=== PATIENT | female | born 1955 | race Caucasian/White ===

== ENCOUNTER 2021-11-24 06:35 | Day surgery (SDC) | payer OTHER ==
[2021-11-23 11:05] VITALS: BMI 43.6
[~2021-11-24 06:35] MED LIST: HYDROmorphone 0.5 MG/0.5 ML SYRINGE IVP PRN; LACTATED RINGERS 1,000 ML IV SCH; LIDOCAINE 1% (10MG/ML) FOR IV START INTRADERMA PRN; MIDAZOLAM 2 MG/2 ML VIAL IV PRN; Pre Op ABX Message 1 EACH MISC MISCELLANE ONE
[2021-11-24] MEDS ORDERED: LACTATED RINGERS 1,000 ML IV ONE (06:57)
[2021-11-24] MEDS ORDERED: ONDANSETRON 4 MG/2 ML VIAL ONE (06:59)
[2021-11-24] MEDS ORDERED: DEXAMETHASONE SOD PHOSPHATE 4 MG/ML 1 ML VIAL IVP ONE (07:03)
[2021-11-24] MEDS ORDERED: PROPOFOL 10 MG/ML 50 ML VIAL IV ONE (08:25)
[2021-11-24] MEDS ORDERED: MIDAZOLAM 2 MG/2 ML VIAL ONE (08:25)
[2021-11-24] MEDS ORDERED: LIDOCAINE 2% INJ 20 MG/ML (2 ML VIAL) ONE (08:25)
[2021-11-24] MEDS ORDERED: fentaNYL (PF) 50 MCG/ML 2 ML AMP ONE (08:25)
[2021-11-24] MEDS ORDERED: SODIUM CHLORIDE 0.9% 100 ML with ceFAZolin 2,000 MG IV ONE ×2 (08:35)
[2021-11-24] MEDS ORDERED: BUPIVACAINE (PF) 0.25% 30 ML VIAL SQ ONE (08:35)
--- NOTE | 2021-11-24 09:39 | P.OP ---
Date of Procedure: 11/24/21 Preoperative Diagnosis: Hallux valgus left foot Postoperative Diagnosis: Same Procedure(s) Performed: First metatarsal phalangeal joint arthrodesis left foot Implants: Arthrex MaxForce plate Anesthesia: MERARI Surgeon: Dustin Mora Estimated Blood Loss (ml): 2 Pathology: none sent Condition: stable Disposition: PACU Description of Procedure: The patient was brought into the operative room placed on table supine position. Timeout was taken to confirm correct patient identifiers, correct procedure, and correct laterality of procedure. When the staff in the room were in agreement with the timeout, the patient was induced and placed under general ane sthesia. A well-padded tourniquet was placed on the ankle and then 20 mL of 0.25% Marcaine was injected as an ankle block. The foot was then prepped and draped in usual manner. The foot was exsanguinated with an Esmarch bandage and the tourniquet inflated to 250 mmHg. Attention directed over the first metatarsal phalangeal joint where a linear incision was made between the extensor hallucis longus tendon and the neurovascular structures. The incision was deepened down to the subcutaneous tissue careful to identify, avoid, and retract any neurovascular structures and cauterize any bleeding vessels. Blunt dissection was continued down to the joint capsule. A linear periosteal and capsular incision was made to the extensor hallucis longus tendon. Subperiosteal dissection was performed to expose the base of the proximal phalanx and head of the first metatarsal. A reamer saw was then used to contour the first metatarsal head and remove any of the osteophytes. Then a guidewire was placed centrally into the first metatarsal head and into the medullary canal parallel to the long access of the metatarsal. The concave reamer was then used to remove the articular cartilage and subchondral bone and expose bleeding medullary bone. The guidewire was removed and then used to aggressively fenestrate the head of the first metatarsal to promote bleeding. The guidewire was then inserted at the central aspect of the articular surface of the base of the proximal phalanx. It was advanced into the medullary canal parallel to the long axis of the phalanx. The convex reamer was then used to remove the articular cartilage and subchondral bone and expose bleeding medullary bone. The guidewire was removed and used to aggressively fenestrate this surface also. The wound is then thoroughly irrigated with antibiotic saline. Approximately 1 mL of Arthrex bone morphogenic protein material was placed between the arthrodesis segments. Then the MaxForce plate was placed dorsally across the arthrodesis site utilizing aligned in the plate to placed over the joint surface. It was temporarily fixated in position was checked under fluoroscopy. Once position was acceptable locking screws were placed in the distal holes in the proximal phalanx. A guidewire was then placed across the arthrodesis site to hold the joint in its position. Then the drill hole for the compression device of the plate was made the compression device inserted and then utilized to further compress the arthrodesis site. Once that was completed threaded olive wire was used to lock the plate in place and then the second compression screw was placed proximally to lock the plate and further compress the joint. A second nonlocking screw was placed in the proximal portion of the plate into the metatarsal and the last screw placed with locking screw in the most proximal portion of the plate on the metatarsal. Final fluoroscopic imaging showed complete compression across the arthrodesis site and proper alignment of the great toe. The wound is again irrigated with antibiotic saline. Deep closure was done with 2-0 Vicryl. Subcu closure done for Monocryl. And skin closure done with 3-0 Stratafix in a running subcuticular manner. Dermal glue was applied and allowed to dry. Steri-Strips are placed over the incision, then a jumpstart dressing, and then a bulky dry dressing. The tourniquet was released and capillary refill return to all digits on the foot. Patient was then placed in a well-padded, well molded plaster posterior mold/sugar tong splint. The ankle and foot were held in neut ral position until the splint was dried. Anesthesia was then reversed and the patient was taken recovery with vital signs stable
[2021-11-24 09:46] VITALS: TEMP 98.1
[2021-11-24 10:38] VITALS: RESP 20
[2021-11-24 10:52] VITALS: BP 125/84; PULSE 61
== END 2021-11-24 11:38 | disposition home or self-care (01) ==
LOC: OR 06:35
PROVIDERS: ATTEND Podiatrist
DX: M20.12 Hallux valgus (acquired), left foot (principal); M21.6X2 Other acquired deformities of left foot; M10.9 Gout, unspecified; E89.0 Postprocedural hypothyroidism; E66.01 Morbid (severe) obesity due to excess calories; Z68.41 Body mass index [BMI] 40.0-44.9, adult; Z79.890 Hormone replacement therapy; Z97.3 Presence of spectacles and contact lenses; Z83.3 Family history of diabetes mellitus; Z82.49 Family history of ischemic heart disease and other diseases of the circulatory system
CPT/HCPCS: 28299; C1713; J2250; J1100; J2405; J0690; J3010; J2704; J1170; J2001

== ENCOUNTER 2022-04-20 07:36 | Day surgery (SDC) | payer OTHER ==
[2022-04-17 08:41] VITALS: BMI 43.2
[~2022-04-20 07:36] MED LIST changes: +DEXAMETHASONE SOD PHOSPHATE 4 MG/ML 1 ML VIAL IV ONE; -LIDOCAINE 1% (10MG/ML) FOR IV START INTRADERMA PRN; +ONDANSETRON 4 MG/2 ML VIAL IVP ONE; -Pre Op ABX Message 1 EACH MISC MISCELLANE ONE; +SCOPOLAMINE 1 MG/72 HR PATCH TRANSDERM ONE
[2022-04-20] MEDS ORDERED: MIDAZOLAM 2 MG/2 ML VIAL IVP ONE (08:40)
[2022-04-20] MEDS ORDERED: PROPOFOL 10 MG/ML 20 ML VIAL IV ONE (09:29)
[2022-04-20] MEDS ORDERED: SUCCINYLCHOLINE CHLORIDE 200 MG/10 ML VIAL IV ONE (09:29)
[2022-04-20] MEDS ORDERED: fentaNYL (PF) 50 MCG/ML 2 ML AMP ONE (09:29)
[2022-04-20] MEDS ORDERED: ROPIVACAINE 5 MG/ML 30 ML VIAL ONE (09:29)
[2022-04-20] MEDS ORDERED: DEXAMETHASONE SOD PHOSPHATE 4 MG/ML 1 ML VIAL ONE (09:29)
[2022-04-20] MEDS ORDERED: LIDOCAINE 2% INJ 20 MG/ML (2 ML VIAL) ONE (09:29)
[2022-04-20] MEDS ORDERED: ceFAZolin 1,000 MG in SODIUM CHLORIDE 0.9% 1,000 ML IRRIGATION ONE (09:40)
--- NOTE | 2022-04-20 10:53 | P.OP ---
Date of Procedure: 04/20/22 Preoperative Diagnosis: Hallux valgus right foot Postoperative Diagnosis: Same Procedure(s) Performed: First metatarsal phalangeal joint arthrodesis right foot Implants: Arthrex MaxForce plate Allosync Anesthesia: ANASTASIAA Surgeon: Dustin Mora Estimated Blood Loss (ml): 1 Pathology: none sent Condition: stable Disposition: PACU Description of Procedure: Prior to the patient being brought to the operative room. Anesthesia administered nerve block on the right lower extremity. The patient was brought into the operative room placed on table supine position. Timeout was taken to confirm correct patient identifiers, correct procedure, and correct laterality of procedure. When the staff in the room were in agreement with the timeout, the patient was induced and placed under general anesthesia. A well-padded tourniquet was placed on the ankle. The foot was then prepped and draped in usual manner. The foot was exsanguinated with an Esmarch bandage and the tourniquet inflated to 250 mmHg. Attention directed over the first metatarsal phalangeal joint where a linear incision was made between the extensor hallucis longus tendon and the neurovascular structures. The incision was deepened down to the subcutaneous tissue careful to identify, avoid, and retract any neurovascular structures and cauterize any bleeding vessels. Blunt dissection was continued down to the joint capsule. A linear periosteal and capsular incision was made to the e xtensor hallucis longus tendon. Subperiosteal dissection was performed to expose the base of the proximal phalanx and head of the first metatarsal. A reamer saw was then used to contour the first metatarsal head and remove any of the osteophytes. Then a guidewire was placed centrally into the first metatarsal head and into the medullary canal parallel to the long access of the metatarsal. The concave reamer was then used to remove the articular cartilage and subchondral bone and expose bleeding medullary bone. The guidewire was removed and then used to aggressively fenestrate the head of the first metatarsal to promote bleeding. The guidewire was then inserted at the central aspect of the articular surface of the base of the proximal phalanx. It was advanced into the medullary canal parallel to the long axis of the phalanx. The convex reamer was then used to remove the articular cartilage and subchondral bone and expose bleeding medullary bone. The guidewire was removed and used to aggressively fenestrate this surface also. The wound is then thoroughly irrigated with antibiotic saline. Approximately 1 mL of Arthrex bone morphogenic protein material was placed between the arthrodesis segments. Then the MaxForce plate was placed dorsally across the arthrodesis site utilizing aligned in the plate to placed over the joint surface. It was temporarily fixated in position was checked under fluoroscopy. Once position was acceptable locking screws were placed in the distal holes in the proximal phalanx. A guidewire was then placed across the arthrodesis site to hold the joint in its position. Then the drill hole for the compression device of the plate was made the compression device inserted and then utilized to further compress the arthrodesis site. Once that was completed threaded olive wire was used to lock the plate in place and then the second compression screw was placed proximally to lock the plate and further compress the joint. A second nonlocking screw was placed in the proximal portion of the plate into the metatarsal and the last screw placed with locking screw in the most proximal portion of the plate on the metatarsal. Final fluoroscopic imaging showed complete compression across the arthrodesis site and proper alignment of the great toe. The wound is again irrigated with antibiotic saline. Deep closure was done with 2-0 Vicryl. Subcu closure done for Monocryl. And skin closure done with 3-0 Stratafix in a running subcuticular manner. Dermal glue was applied and allowed to dry. Steri-Strips are placed over the incision, then a jumpstart dressing, and then a bulky dry dressing. The tourniquet was released and capillary refill return to all digits on the foot. Patient was then placed in a well-padded, well molded plaster posterior mold/sugar tong splint. The ankle and foot were held in neutral position until the splint was dried. Anesthesia was then reversed and the patient was taken recovery with vital signs stable
[2022-04-20 11:00] VITALS: TEMP 97
--- NOTE | 2022-04-20 11:16 | P.ANPRN ---
Procedure Note - Anesthesia - Nerve Block Performed Right Popliteal Single Time Out Performed: Yes Date of Procedure: 04/20/22 Procedure Start Time: 08:39 Procedure Stop Time: 08:41 Location of Patient: PreOp Indication: Acute Post-Operative Pain, Requested by Surgeon Sedation Type: Sedate with meaningful contact maintained Preparation: Sterile Prep Position: Left Lateral Needle Types: Pajunk Needle Gauge: 21 Ultrasound used to visualize needle placement: Yes Ultrasound used to observe medication spread: Yes Blood Aspirated: No Pain Paresthesia on Injection Noted: No Resistance on Injection: Normal Image Stored and Saved: Yes Events: Uneventful and Well Tolerated (Ropivacaine 0.5% 75 mL plus dexamethasone 4 mg)
--- NOTE | 2022-04-20 11:17 | P.ANPRN ---
Procedure Note - Anesthesia - Nerve Block Performed Right Adductor Canal Single Time Out Performed: Yes Date of Procedure: 04/20/22 Procedure Start Time: 08:42 Procedure Stop Time: 08:46 Location of Patient: PreOp Indication: Acute Post-Operative Pain, Requested by Surgeon Sedation Type: Sedate with meaningful contact maintained Preparation: Sterile Prep Position: Supine Needle Types: Pajunk Needle Gauge: 21 Ultrasound used to visualize needle placement: Yes Ultrasound used to observe medication spread: Yes Blood Aspirated: No Pain Paresthesia on Injection Noted: No Resistance on Injection: Normal Image Stored and Saved: Yes Events: Uneventful and Well Tolerated (Ropivacaine 0.5% 20 mL of dexamethasone for medical)
[2022-04-20 11:41] VITALS: RESP 17
[2022-04-20 12:15] VITALS: BP 130/82; PULSE 74
== END 2022-04-20 12:44 | disposition home or self-care (01) ==
LOC: OR 07:36
PROVIDERS: ATTEND Podiatrist
DX: M20.11 Hallux valgus (acquired), right foot (principal); G89.18 Other acute postprocedural pain; E07.9 Disorder of thyroid, unspecified
CPT/HCPCS: 28750; 64447; 64445; 76942; C1713; J2250; J0330; J1100; J0690 ×2; J2405; J3010; J2795; J2704; J2001

== ENCOUNTER 2022-09-16 17:17 | Observation (INO) | payer OTHER ==
[2022-09-16] MEDS ORDERED: ONDANSETRON 4 MG/2 ML VIAL IVP PRN (17:38)
[2022-09-16] MEDS ORDERED: MORPHINE SULFATE 4 MG/ML SYRINGE IV PRN (17:38)
[2022-09-16] MEDS ORDERED: NALOXONE 0.4 MG/ML 1 ML VIAL IV PRN (17:38)
--- NOTE | 2022-09-16 17:38 | ED ---
General Adult HPI - General Chief complaint: Abdominal Pain Stated complaint: Abd Pain Time Seen by Provider: 09/16/22 17:18 Source: patient, EMS Mode of arrival: EMS Limitations: no limitations - History of Present Illness Initial comments: Patient was transferred to our ED from the [facility] ED by ambulance. Per [facility] ED physician, the patient is being transferred for management of acute appendicitis. Per [facility] ED physician, the patient presented there with complaints of having right lower quadrant abdominal pain since yesterday, and a CT performed that demonstrated findings of acute appendicitis. Patient was treated with pain medication and IV antibiotics (ceftriaxone and Flagyl) at the outside hospital prior to transfer. Patient reports having right lower quadrant abdominal pain since yesterday, which she states has been getting worse. Patient states that her pain has improved with the pain medication that she was given at the outside hospital ED and by EMS. Patient admits to having mild nausea. Patient denies vomiting. Patient states that she last had anything to eat about 24-30 hours ago. Patient denies anticoagulant medication use. Patient denies trauma or injury, fever or chills, headache, focal neuro deficit, chest pain or pressure, dyspnea, cough or cold symptoms, upper abdominal pain, back or flank pain, vomiting, diarrhea or constipation, bloody or melanotic stool, dysuria/hematuria/urinary frequency/urinary symptoms, vaginal bleeding, or any other symptoms or complaints. Patient's outside hospital records/lab results/CT report were reviewed myself. - Related Data Home Medications Medication Instructions Recorded Confirmed Levothyroxine Sodium 150 mcg PO QAM 11/23/21 04/20/22 Allergies Allergy/AdvReac Type Severity Reaction Status Date / Time No Known Allergies Allergy Verified 09/16/22 17:41 Review of Systems ROS Statement: Those systems with pertinent positive or pertinent negative responses have been documented in the HPI. ROS Other: All systems not noted in ROS Statement are negative. Past Medical History Past Medical History: Osteoarthritis (OA), Thyroid Disorder Additional Past Medical History / Comment(s): hx gout, thyroidectomy for nodules., bunion right foot History of Any Multi-Drug Resistant Organisms: None Reported Past Surgical History: Tubal Ligation Additional Past Surgical History / Comment(s): thyroidectomy, D&C x2, bunion left foot Past Anesthesia/Blood Transfusion Reactions: No Reported Reaction Past Psychological History: No Psychological Hx Reported Smoking Status: Never smoker Past Alcohol Use History: Rare Past Drug Use History: None Reported - Past Family History Mother Family Medical History: Hypertension Father Family Medical History: Myocardial Infarction ([place]) Brother(s) Family Medical History: Deep Vein Thrombosis (DVT) General Exam Limitations: no limitations General appearance: alert, in no apparent distress Head exam: Present: atraumatic, normocephalic Eye exam: Present: normal appearance ENT exam: Present: mucous membranes moist Respiratory exam: Present: normal lung sounds bilaterally. Absent: respiratory distress, wheezes, rales, rhonchi, stridor Cardiovascular Exam: Present: regular rate, normal rhythm, normal heart sounds, other (Normal radial pulses bilaterally) GI/Abdominal exam: Present: soft, normal bowel sounds, other (Moderate right lower quadrant abdominal tenderness over McBurney's point; negative Rovsing's sign; obese abdomen). Absent: guarding, rebound Extremities exam: Absent: pedal edema Back exam: Absent: CVA tenderness (R), CVA tenderness (L) Neurological exam: Present: alert, oriented X3. Absent: motor sensory deficit Psychiatric exam: Present: normal affect, normal mood Skin exam: Present: warm, dry, intact, normal color Course Vital Signs 09/16/22 17:23 Temperature 98.9 F Pulse Rate 91 Respiratory 18 Rate Blood Pressure 142/91 O2 Sat by Pulse 96 Oximetry - Reevaluation(s) Reevaluation #1: 09/16/22 17:37 Case, H&P, outside hospital test results and outside hospital treatment were discussed with Dr. Viera (general surgery). He states that he will likely be taking the patient to the OR from the ED this evening. He has no further recommendations at this time. Medical Decision Making - Medical Decision Making Was pt. sent in by a medical professional or institution (, PA, [employer], urgent care, hospital, or custodial...) When possible be specific @ -Patient was transferred to our ED from [facility]. Did you speak to anyone other than the patient for history (EMS, parent, family, police, friend...)? What history was obtained from this source @ -History was provided by the [facility] ED physician. Did you review nursing and triage notes (agree or disagree)? Why? @ -I reviewed and agree with nursing and triage notes Were old charts reviewed (outside hosp., previous admission, EMS record, old EKG, old radiological studies, urgent care reports/EKG's, custodial records)? Report findings @ -I have reviewed the [facility] ED records, lab results and CT report from today. Differential Diagnosis (chest pain, altered mental status, abdominal pain women, abdominal pain men, vaginal bleeding, weakness, fever, dyspnea, syncope, headache, dizziness, GI bleed, back pain, seizure, CVA, palpatations, mental health, musculoskeletal)? @ -Differential Abdominal Pain Women: Appendicitis, Cholecystitis, diverticulosis, ischemic bowel, UTI, gastroenteritis, AAA, incarcerated hernia, bowel obstruction, constipation, inflammatory bowel, hepatitis, peptic ulcer disease, perforated viscus, ovarian torsion, ovarian cyst, kidney stone, uterine fibroid, this is not meant to be an all-inclusive list EKG interpreted by me (3pts min.). @ -None done X-rays interpreted by me (1pt min.). @ -None done CT interpreted by me (1pt min.). @ -None done U/S interpreted by me (1pt. min.). @ -None done What testing was considered but not performed or refused? (CT, X-rays, U/S, labs)? Why? @ -None What meds were considered but not given or refused? Why? @ -None Did you discuss the management of the patient with other professionals (professionals i.e. , PA, [employer], lab, RT, psych nurse, social work specialist, sock boarder, teacher, president and chief executive officer, test case developer)? Give summary @ -As above.] Was smoking cessation discussed for >3mins.? @ -No Was critical care preformed (if so, how long)? @ -No Were there social determinants of health that impacted care today? How? (Homelessness, low income, unemployed, alcoholism, drug addiction, transportation, low edu. Level, literacy, decrease access to med. care, detention, rehab)? @ -No Was there de-escalation of care discussed even if they declined (Discuss DNR or withdrawal of care, Hospice)? DNR status @ -No What co-morbidities impacted this encounter? (DM, HTN, Smoking, COPD, CAD, Cancer, CVA, ARF, Chemo, Hep., AIDS, mental health diagnosis, sleep apnea, morbid obesity)? @ -None Was patient admitted / discharged? Hospital course, mention meds given and route, prescriptions, significant lab abnormalities, going to OR and other per tinent info. @ -Patient was transferred to our ED from [facility] ED with diagnosis of acute appendicitis. Patient's WBC count was mildly elevated at 10.79. Patient's UA and lactic acid level are within normal limits. The rest of the patient's labs are fairly unremarkable. Patient's CT abdomen/pelvis report shows findings compatible with acute appendicitis. Patient has been treated with IV Rocephin and IV Flagyl at the outside hospital. Patient reports that her pain is currently under control. Case was discussed with the on-call surgeon, Dr. Viera, who states that he will be taking the patient to the OR this evening for appendectomy. Undiagnosed new problem with uncertain prognosis? @ -No Drug Therapy requiring intensive monitoring for toxicity (Heparin, Nitro, Insulin, Cardizem)? @ -No Were any procedures done? @ -No Diagnosis/symptom? @ -Acute appendicitis Acute, or Chronic, or Acute on Chronic? @ -Acute Uncomplicated (without systemic symptoms) or Complicated (systemic symptoms)? @ -default Side effects of treatment? @ -No Exacerbation, Progression, or Severe Exacerbation? @ -No Poses a threat to life or bodily function? How? (Chest pain, [place], [place], pneumonia, PE, COPD, DKA, ARF, appy, cholecystitis, CVA, Diverticulitis, Homicidal, Suicidal, threat to staff... and all critical care pts) @ -No Disposition Clinical Impression: Acute appendicitis Disposition: ADMITTED IP TO THIS HOSP Condition: Stable Is patient prescribed a controlled substance at d/c from ED?: No Referrals: Claudio Haro MD [Primary Care Provider] - 1-2 days Time of Disposition: 17:37
[2022-09-16] MEDS: SODIUM CHLORIDE 0.9% 1,000 ML IV SCH ×2 (17:49→22:13)
--- NOTE | 2022-09-16 19:08 | P.GSHP ---
History of Present Illness H&P Date: 09/16/22 Chief Complaint: RLQ Pain Presented to an outside hospital with abdominal RLQ pain and nausea. CT show finding consistent with acute appendicitis, No Leukocytosis, no fever no chills - Constitutional Constitutional: Reports anorexia, Reports weight gain, Denies chills, Denies chronic pain, Denies fever, Denies night sweats, Denies weakness - Cardiovascular Cardiovascular: Denies as per HPI, Denies chest pain, Denies claudication, Denies decreased exercise tolerance, Denies dyspnea on exertion, Denies edema, Denies high blood pressure, Denies irregular heart beat, Denies leg edema, Denies lightheadedness, Denies orthopnea, Denies palpitations, Denies paroxysmal nocturnal dyspnea, Denies phlebitis, Denies rapid heart beat, Denies shortness of breath, Denies syncope - Respiratory Respiratory: Denies as per HPI, Denies congestion, Denies cough, Denies cough with sputum, Denies dyspnea, Denies excessive sputum, Denies hemoptysis, Denies home oxygen, Denies pain, Denies pain on inspiration, Denies pleurisy, Denies respiratory infections, Denies sleep apnea, Denies snoring, Denies wheezing - Gastrointestinal Gastrointestinal: Reports abdominal pain, Reports nausea, Reports vomiting, Denies BRBPR, Denies coffee ground emesis, Denies constipation, Denies diarrhea, Denies heartburn, Denies hematemesis, Denies hematochezia, Denies jaundice, Denies lactose intolerance, Denies melena - Musculoskeletal Musculoskeletal: Denies as per HPI, Denies arm numbness/tingling, Denies atrophy, Denies fractures, Denies frequent falls, Denies gait dysfunction, Denies hot joints, Denies leg numbness/tingling, Denies limitation of motion, Denies loss of height, Denies low back pain, Denies morning stiffness, Denies muscle cramps, Denies muscle weakness, Denies myalgias, Denies neck pain, Denies neck stiffness, Denies prior amputations, Denies redness of joints, Denies shooting arm pain, Denies shooting leg pain Past Medical History Past Medical History: GERD/Reflux, Hyperlipidemia, Osteoarthritis (OA), Thyroid Disorder Additional Past Medical History / Comment(s): hx gout, thyroidectomy for nodules., bunion right foot History of Any Multi-Drug Resistant Organisms: None Reported Past Surgical History: Tubal Ligation Additional Past Surgical History / Comment(s): thyroidectomy, D&C x2, bunion left foot Past Anesthesia/Blood Transfusion Reactions: No Reported Reaction Past Psychological History: No Psychological Hx Reported Smoking Status: Never smoker Past Alcohol Use History: Rare Past Drug Use History: None Reported - Past Family History Mother Family Medical History: Hypertension Father Family Medical History: Myocardial Infarction ([place]) Brother(s) Family Medical History: Deep Vein Thrombosis (DVT) Medications and Allergies Home Medications Medication Instructions Recorded Confirmed Type Levothyroxine Sodium 150 mcg PO DAILY 11/23/21 09/16/22 History Allergies Allergy/AdvReac Type Severity Reaction Status Date / Time No Known Allergies Allergy Verified 09/16/22 17:41 Surgical - Exam Vital Signs Temp Pulse Resp BP Pulse Ox 98.9 F 91 18 142/91 96 09/16/22 17:23 09/16/22 17:23 09/16/22 17:23 09/16/22 17:23 09/16/22 17:23 - General well developed, well nourished, no distress, no severe distress - Eyes PERRL, normal ocular movement, no icteric - Neck no no masses, no no bruits, no trachea midline, no no lymphadectomy, no no venous distension, no deviated trachea, no diffuse goiter, no limited ROM, no other - Respiratory no normal expansion, no normal respiratory effort, no clear to percussion, no clear to auscultation, no other - Cardiovascular Rhythm: regular Heart Sounds: normal: S1, S2 Abnormal Heart Sounds: no systolic murmur, no diastolic murmur, no rub, no S3 Gallop, no S4 Gallop, no click, no other - Abdomen Abdomen: soft, tender, bowel sounds, no guarding, no rigid, no rebound, no distended Hernia: none Assessment and Plan (1) Acute appendicitis Current Visit: Yes Status: Acute Priority: High Code(s): K35.80 - UNSPECIFIED ACUTE APPENDICITIS SNOMED Code(s): 39707117 Plan: IV Hydration IV antibiotics To OR for laparascopic appendectomy, possible open.
[2022-09-16] MEDS ORDERED: SUCCINYLCHOLINE CHLORIDE 200 MG/10 ML VIAL IV ONE (20:44)
[2022-09-16] MEDS ORDERED: LABETALOL 5 MG/ML VIAL MDV ONE (20:44)
[2022-09-16] MEDS ORDERED: GLYCOPYRROLATE 0.2 MG/ML 2 ML VIAL ONE (20:44)
[2022-09-16] MEDS ORDERED: MIDAZOLAM 2 MG/2 ML VIAL ONE (20:44)
[2022-09-16] MEDS ORDERED: LIDOCAINE 2% INJ 20 MG/ML (2 ML VIAL) ONE (20:44)
[2022-09-16] MEDS ORDERED: NEOSTIGMINE 1 MG/ML 10 ML VIAL ONE (20:44)
[2022-09-16] MEDS ORDERED: ROCURONIUM 10 MG/ML (5 ML VIAL) IV ONE (20:44)
[2022-09-16] MEDS ORDERED: KETOROLAC 15 MG/ML 1 ML VIAL ONE (20:44)
[2022-09-16] MEDS ORDERED: fentaNYL (PF) 50 MCG/ML 2 ML AMP ONE (20:44)
[2022-09-16] MEDS ORDERED: PROPOFOL 10 MG/ML 20 ML VIAL IV ONE (20:44)
[2022-09-16] MEDS ORDERED: LACTATED RINGERS 1,000 ML IV ONE (20:48)
[2022-09-16] MEDS ORDERED: BUPIVACAINE (PF) 0.25% 30 ML VIAL SQ ONE ×2 (21:04)
[2022-09-16] MEDS ORDERED: ONDANSETRON 4 MG/2 ML VIAL IVP ONE (21:49)
--- NOTE | 2022-09-16 22:28 | P.OP ---
Date of Procedure: 09/16/22 Preoperative Diagnosis: Acute appendicitis Postoperative Diagnosis: Acute appendicitis Procedure(s) Performed: Lap Appy Implants: None Anesthesia: MERARI, local Surgeon: Sheila Viera Estimated Blood Loss (ml): 5 (less than 5 ml) IV fluids (ml): 800 (LR) Pathology: other Condition: stable Disposition: PACU Indications for Procedure: Acute appendecitis Operative Findings: acutr appendecitis, no perforation no abscess Description of Procedure: I had a long discussion with the patient discussed with the patient all the risks and benefits of the procedure risks that include but not limited to bleeding, infection, pain, , deep venous embolus, pulmonary embolism, heart attack, stroke, injury to bladder injury to right kidney or ureter, appendiceal stump leak requiring reoperation possible right hemicolectomy, injury to other organs requiring reoperations among others. All the patient's questions and concerns were answered to their satisfaction they understand the plan and agree with it. After proper identification patient was taken to the OR was placed in the OR table in the supine position. Anesthesia intubated the patient under general anesthesia with no issues no complication. Abdomen was clipped of hair draped and prepped in usual sterile fashion using ChloraPrep. Patient received DVT prophylaxis and IV antibiotic prophylaxis according to protocol. Timeout was conducted according to protocol. 1% lidocaine mixed with quarter percent Marcaine was used for local at all incision site. Supraumbilical area was infiltrated with local similar incision using 15 blade was created above the bellybutton. Blunt dissection carried to the level of the fascia incision was created in the midline using 15 blade. 2 stay stitches were placed on either side of the fascia using 0 Vicryl in UR 6 needle. Blunt large Emily was used to gain access to the peritoneal cavity under direct eye visualization. 12 mm Osuna trocar was introduced into the peritoneal cavity carefully under direct visualization. CO2 insufflation was initiated with excellent pressure and excellent flow. 30 degree 5 mm camera was used to explore the abdomen there were no injury associated with the trocar introduction. The appendix appeared to be inflamed. 2 more trochars were introduced under camera visualization 1 in the subxiphoid area midline 1 in the left lower quadrant avoiding any abdominal wall vessels with transillumination of the abdominal wall. Patient was placed headdown right side up I was able to grasp the base of the appendix and using the LigaSure I took down the mesoappendix there were no bleeding. I removed all the attachment and adhesion around the base of the appendix. Then using the Endo SARITA stapler blue load I fired a load across the base of her appendix including a small portion of the cecum. The stapler was closed for 45 seconds and then it was fired held close for another 45 seconds and then released no bleeding no leak from the appendiceal stump. The appendix was placed in the bag and retrieved successfully through the umbilical port. Inspection of the mesoappendix stump and appendiceal stump revealed no bleeding no leak. Decrease the CO2 pressure inspected the mesoappendix stump and mesoappendix no bleeding no leak inspected the abdomen there were no injury associated with this procedure trochars were removed under camera visualization no bleeding from trocar site camera was removed abdomen was deflated of air irrigated all trocar site and closed the midline incision using 0 Vicryl in UR 6 needle interrupted then closed all skin with 3-0 Vicryl subcuticular and rested with Dermabond and Steri-Strips. Needle sponge and instrument count was correct x2. Patient tolerated the procedure very well patient was awakened extubated sent recovery in stable condition.
[2022-09-17 08:06] VITALS: RESP 16
[2022-09-17] MEDS: SODIUM CHLORIDE 0.9% 1,000 ML IV SCH (10:40)
[2022-09-17 10:57] LABS: African American GFR (CKD) 106.1 (60.0-200.0); Albumin 3.3 g/dL (3.8-4.9); Albumin/Globulin Ratio 1.27 (1.60-3.17); Anion Gap 8.5 mmol/L (10.00-18.00); BUN/Creat Ratio 10.43 Ratio (12.00-20.00); Blood Urea Nitrogen 7.3 mg/dL (9.0-27.0); Calcium 8.1 mg/dL (8.7-10.3); Carbon Dioxide 27.5 mmol/L (20.0-27.5); Globulin 2.6 g/dL (1.6-3.3); Non-African American GFR(CKD) 91.6 (60.0-200.0); Potassium 3.4 mmol/L (3.5-5.5); Total Bilirubin 0.6 mg/dL (0.30-1.20); Total Protein 5.9 g/dL (6.2-8.2)
[2022-09-17 11:12] LABS: Basophils # (A) 0.04 X 10*3/uL (0.00-0.10); Basophils % (A) 0.5 %; Eosinophils # (A) 0.03 X 10*3/uL (0.04-0.35); Eosinophils % (A) 0.4 %; HCT 41.6 % (37.2-46.3); Immature Grans, Automated 0.4 %; Lymphocytes # (A) 1.24 X 10*3/uL (0.90-5.00); Lymphocytes % (A) 15.7 %; MCH 27.9 pg (27.0-32.0); MCHC 31.3 g/dL (32.0-37.0); MCV 89.3 fL (80.0-97.0); Mean Platelet Volume 10.6 fL (9.5-12.2); Monocytes % (A) 12.7 %; NRBC Per 100 WBC 0 /100 WBCS (0.0-0.0); Neutrophils # (A) 5.54 X 10*3/uL (1.80-7.70); Neutrophils % (A) 70.3 %; Platelet Count 154 X 10*3/uL (140-440); RBC 4.66 X 10*6/uL (4.10-5.20); RDW 14.2 % (11.5-14.5); WBC 7.88 X 10*3/uL (4.50-10.00)
[2022-09-17] MEDS ORDERED: POTASSIUM CHLORIDE ER 20 MEQ TAB.ER PO STA (11:17)
[2022-09-17 14:29] VITALS: BP 141/93; PULSE 82; TEMP 99.6
== END 2022-09-17 14:19 | disposition home or self-care (01) ==
LOC: EC 17:17 → 6NMEDSUR 17:39
PROVIDERS: ADMIT Colon & Rectal Surgery; ATTEND Colon & Rectal Surgery
DX: K35.80 Unspecified acute appendicitis (principal); E89.0 Postprocedural hypothyroidism; M10.9 Gout, unspecified; E78.5 Hyperlipidemia, unspecified; K21.9 Gastro-esophageal reflux disease without esophagitis; M19.90 Unspecified osteoarthritis, unspecified site; M21.611 Bunion of right foot; Z79.890 Hormone replacement therapy; E66.01 Morbid (severe) obesity due to excess calories; Z68.41 Body mass index [BMI] 40.0-44.9, adult; Z98.51 Tubal ligation status; Z98.890 Other specified postprocedural states; Z82.49 Family history of ischemic heart disease and other diseases of the circulatory system
CPT/HCPCS: 99285; 80053; 85025; 44970; G0378 ×2; C1762; J2250; J0330; J2710; J2405; J0694; J3010; J1885; J2704; J2001

== ENCOUNTER 2022-10-01 09:07 | Observation (INO) | payer MEDICARE, OTHER ==
--- NOTE | 2022-10-01 09:24 | ED ---
General Adult HPI - General Chief complaint: Abdominal Pain Stated complaint: Abd Pain Time Seen by Provider: 10/01/22 09:07 Source: patient, EMS, RN notes reviewed, old records reviewed Mode of arrival: EMS Limitations: no limitations - History of Present Illness Initial comments: This is a 66-year-old female presents emergency department from [facility]. Patient went in last night about 10:00 was complaining of chest pain and epigastric abdominal pain patient had negative troponin there in [facility] but the CAT scan of the chest showed possible dilated gallbladder with a stone in the neck of the gallbladder. Physician there was worried about cholecystitis and they did not have a surgeon so they sent the patient on aspirin patient states she received Toradol and now has no pain. Patient denies any chest pain patient states she never was short of breath. Patient states the pain was in the epigastric area mostly and it was reproducible at the time. Patient denies any recent fever chills or cough. Patient had received pain medications at [facility] as well as antibiotics. - Related Data Home Medications Medication Instructions Recorded Confirmed Levothyroxine Sodium 150 mcg PO DAILY 11/23/21 09/16/22 Allergies Allergy/AdvReac Type Severity Reaction Status Date / Time No Known Allergies Allergy Verified 09/16/22 17:41 Review of Systems ROS Statement: Those systems with pertinent positive or pertinent negative responses have been documented in the HPI. ROS Other: All systems not noted in ROS Statement are negative. Past Medical History Past Medical History: GERD/Reflux, Hyperlipidemia, Osteoarthritis (OA), Thyroid Disorder Additional Past Medical History / Comment(s): hx gout, thyroidectomy for nodules., bunion right foot History of Any Multi-Drug Resistant Organisms: None Reported Past Surgical History: Tubal Ligation Additional Past Surgical History / Comment(s): thyroidectomy, D&C x2, bunion left foot Past Anesthesia/Blood Transfusion Reactions: No Reported Reaction Past Psychological History: No Psychological Hx Reported Smoking Status: Never smoker Past Alcohol Use History: Rare Past Drug Use History: None Reported - Past Family History Mother Family Medical History: Hypertension Father Family Medical History: Myocardial Infarction ([place]) Brother(s) Family Medical History: Deep Vein Thrombosis (DVT) General Exam - General Exam Comments Initial Comments: GENERAL: Patient is well-developed and well-nourished. Patient is nontoxic and well- hydrated and is in no acute distress. ENT: Neck is soft and supple. No significant lymphadenopathy is noted. Oropharynx is clear. Moist mucous membranes. Neck has full range of motion without eliciting any pain. EYES: The sclera were anicteric and conjunctiva were pink and moist. Extraocular movements were intact and pupils were equal round and reactive to light. Eyelids were unremarkable. PULMONARY: Unlabored respirations. Good breath sounds bilaterally. No audible rales rhonchi or wheezing was noted. CARDIOVASCULAR: There is a regular rate and rhythm without any murmurs gallops or rubs. ABDOMEN: Soft and nontender with normal bowel sounds. Currently patient is not having any pain SKIN: Skin is clear with no lesions or rashes and otherwise unremarkable. NEUROLOGIC: Patient is alert and oriented x3. Cranial nerves II through XII are grossly intact. Motor and sensory are also intact. Normal speech, volume and content. Symmetrical smile. MUSCULOSKELETAL: Normal extremities with adequate strength and full range of motion. LYMPHATICS: No significant lymphadenopathy is noted PSYCHIATRIC: Normal psychiatric evaluation. Limitations: no limitations Course Vital Signs 10/01/22 09:11 Temperature 97.3 F L Pulse Rate 58 L Respiratory 16 Rate Blood Pressure 150/91 O2 Sat by Pulse 98 Oximetry Medical Decision Making - Medical Decision Making EKG was interpreted by myself shows a sinus bradycardia 57 bpm MS interval is 170 QRS 94 Q-T intervals 4 430 QTC is 434. EKG shows no ST segment elevation or depression Was pt. sent in by a medical professional or institution (, PA, DIRECTOR SALES TRAINING, urgent care, hospital, or shelter...) When possible be specific @ -Patient was sent to us by [facility] Did you speak to anyone other than the patient for history (EMS, parent, family, police, friend...)? What history was obtained from this source @ -No Did you review nursing and triage notes (agree or disagree)? Why? @ -I reviewed and agree with nursing and triage notes Were old charts reviewed (outside hosp., previous admission, EMS record, old EKG, old radiological studies, urgent care reports/EKG's, shelter records)? Report findings @ -No old charts were reviewed Differential Diagnosis (chest pain, altered mental status, abdominal pain women, abdominal pain men, vaginal bleeding, weakness, fever, dyspnea, syncope, headache, dizziness, GI bleed, back pain, seizure, CVA, palpatations, mental health, musculoskeletal)? @ -Differential Abdominal Pain Women: Appendicitis, Cholecystitis, diverticulosis, ischemic bowel, pancreatitis, hepatitis, UTI, gastroenteritis, AAA, incarcerated hernia, bowel obstruction, constipation, inflammatory bowel, hepatitis, peptic ulcer disease, splenic infarction, perforated viscus, vulvitis, ovarian torsion, PID, kidney stone, placenta abruption, this is not meant to be an all-inclusive list EKG interpreted by me (3pts min.). @ -As above X-rays interpreted by me (1pt min.). @ -None done CT interpreted by me (1pt min.). @ -None done U/S interpreted by me (1pt. min.). @ -Ultrasound of the gallbladder showed a stone stuck in the gallbladder neck What testing was considered but not performed or refused? (CT, X-rays, U/S, labs)? Why? @ -None What meds were considered but not given or refused? Why? @ -None Did you discuss the management of the patient with other professionals (professionals i.e. , PA, DIRECTOR SALES TRAINING, lab, RT, psych nurse, social scientist, flexible shaft winder, teacher, sheriffs officer, telephonic nurse case manager)? Give summary @ -I spoke with Dr. Rice and he agreed to admit the patient I wrote admitting orders Was smoking cessation discussed for >3mins.? @ -No Was critical care preformed (if so, how long)? @ -No Were there social determinants of health that impacted care today? How? (Homelessness, low income, unemployed, alcoholism, drug addiction, transportation, low edu. Level, literacy, decrease access to med. care, long-term, rehab)? @ -No Was there de-escalation of care discussed even if they declined (Discuss DNR or withdrawal of care, Hospice)? DNR status @ -No What co-morbidities impacted this encounter? (DM, HTN, Smoking, COPD, CAD, Cancer, CVA, ARF, Chemo, Hep., AIDS, mental health diagnosis, sleep apnea, morbid obesity)? @ -None Was patient admitted / discharged? Hospital course, mention meds given and route, prescriptions, significant lab abnormalities, going to OR and other pertinent info. @ -Patient remained relatively pain free throughout the ED course Dr. Rice came down and saw the patient and I admitted the patient wrote admitting orders Undiagnosed new problem with uncertain prognosis? @ -No Drug Therapy requiring intensive monitoring for toxicity (Heparin, Nitro, Insulin, Cardizem)? @ -No Were any procedures done? @ -No Diagnosis/symptom? @ -Cholelithiasis Acute, or Chronic, or Acute on Chronic? @ -Acute Uncomplicated (without systemic symptoms) or Complicated (systemic symptoms)? @ -Complicated Side effects of treatment? @ -No Exacerbation, Progression, or Severe Exacerbation? @ -No Poses a threat to life or bodily function? How? (Chest pain, [place], [place], pneumonia, PE, COPD, DKA, ARF, appy, cholecystitis, CVA, Diverticulitis, Homicidal, Suicidal, threat to staff... and all critical care pts) @ -No - Lab Data Result diagrams: 10/01/22 09:23 Lab Results 10/01/22 10/01/22 Range/Units 09:23 09:23 WBC 9.8 (3.8-10.6) k/uL RBC 4.86 (3.80-5.40) m/uL Hgb 14.0 (11.4-16.0) gm/dL Hct 43.8 (34.0-46.0) % MCV 90.1 (80.0-100.0) fL MCH 28.9 (25.0-35.0) pg MCHC 32.0 (31.0-37.0) g/dL RDW 13.8 (11.5-15.5) % Plt Count 259 (150-450) k/uL MPV 7.5 Neutrophils % 87 % Lymphocytes % 9 % Monocytes % 3 % Eosinophils % 1 % Basophils % 0 % Neutrophils # 8.5 H (1.3-7.7) k/uL Lymphocytes # 0.8 L (1.0-4.8) k/uL Monocytes # 0.3 (0-1.0) k/uL Eosinophils # 0.1 (0-0.7) k/uL Basophils # 0.0 (0-0.2) k/uL Troponin I <0.012 (0.000-0.034) ng/mL Disposition Clinical Impression: Other cholelithiasis with obstruction Disposition: ADMITTED IP TO THIS [facility] Referrals: Claudio Haro MD [Primary Care Provider] - 1-2 days Time of Disposition: 11:20
[2022-10-01 09:31] LABS: Basophils % (A) 0 %; Eosinophils # (A) 0.1 k/uL (0-0.7); Eosinophils % (A) 1 %; HCT 43.8 % (34.0-46.0); Lymphocytes # (A) 0.8 k/uL (1.0-4.8); Lymphocytes % (A) 9 %; MCH 28.9 pg (25.0-35.0); MCV 90.1 fL (80.0-100.0); Mean Platelet Volume 7.5; Monocytes # (A) 0.3 k/uL (0-1.0); Monocytes % (A) 3 %; Neutrophils # (A) 8.5 k/uL (1.3-7.7); Neutrophils % (A) 87 %; Platelet Count 259 k/uL (150-450); RBC 4.86 m/uL (3.80-5.40); RDW 13.8 % (11.5-15.5); WBC 9.8 k/uL (3.8-10.6)
--- NOTE | 2022-10-01 10:03 | US ---
EXAMINATION TYPE: US gallbladder DATE OF EXAM: 10/01/2022 COMPARISON: NONE CLINICAL INDICATION: Female, 66 years old with history of Right upper quadrant abdominal pain; abd pa in TECHNIQUE: Multiple sonographic images of the right upper quadrant are obtained. FINDINGS: EXAM MEASUREMENTS: Liver Length: 16.9 cm Gallbladder Wall: 0.2 cm CBD: 0.6 cm Right Kidney: 11.4 x 4.9 x 5.2 cm Pancreas: wnl Liver: focal fatty sparing seen adjacent to GB, difficult to penetrate Gallbladder: 1.9cm neck stone, that did not move when patient rolled Evidence for sonographic Yang's sign: no, but on medication CBD: wnl Right Kidney: wnl Visualized pancreas is unremarkable. Visualized liver is heterogeneously hyperechoic. Evaluation for focal masses suboptimal due to the heterogeneity. Findings consistent with diffuse fatty infiltration and/or underlying hepatocellular disease. There is nonmobile 1.9 cm shadowing stone in the gallbladd er neck. No pericholecystic fluid or abnormal gallbladder wall thickening. No right-sided hydronephro sis. No biliary dilatation noted. IMPRESSION: Single nonmobile 1.9 cm stone in gallbladder neck without secondary ultrasound evidence f or acute cholecystitis. In Patient with right upper quadrant pain it is not entirely excluded. Consid er HIDA scan to further evaluate.
[2022-10-01] MEDS ORDERED: ONDANSETRON 4 MG/2 ML VIAL IVP PRN (10:38)
[2022-10-01] MEDS ORDERED: KETOROLAC 15 MG/ML 1 ML VIAL IVP PRN (10:39)
[2022-10-01] MEDS ORDERED: SODIUM CHLORIDE 0.9% 1,000 ML IV ONE (11:30)
[2022-10-01] MEDS ORDERED: LACTATED RINGERS 1,000 ML IV ONE ×2 (13:24→15:20)
[2022-10-01] MEDS ORDERED: DEXAMETHASONE SOD PHOSPHATE 4 MG/ML 1 ML VIAL IVP ONE (13:41)
--- NOTE | 2022-10-01 14:03 | P.GSHP ---
History of Present Illness H&P Date: 10/01/22 Chief Complaint: Right upper quadrant pain radiating the back. This 66-year-old female who was seen at outside hospital. Patient was transferred to the emergency room. Patient is a quadrant pain which radiated to her back. Patient was found have large gallstones. Patient underwent recent laparoscopic appendectomy several weeks ago. The pain is different than her appendix pain. Past Medical History Past Medical History: GERD/Reflux, Hyperlipidemia, Osteoarthritis (OA), Thyroid Disorder Additional Past Medical History / Comment(s): hx gout, thyroidectomy for nodules., bunion right foot History of Any Multi-Drug Resistant Organisms: None Reported Past Surgical History: Tubal Ligation Additional Past Surgical History / Comment(s): thyroidectomy, D&C x2, bunion left foot Past Anesthesia/Blood Transfusion Reactions: No Reported Reaction Past Psychological History: No Psychological Hx Reported Smoking Status: Never smoker Past Alcohol Use History: Rare Past Drug Use History: None Reported - Past Family History Mother Family Medical History: Hypertension Father Family Medical History: Myocardial Infarction ([place]) Brother(s) Family Medical History: Deep Vein Thrombosis (DVT) Medications and Allergies Home Medications Medication Instructions Recorded Confirmed Type Levothyroxine Sodium 150 mcg PO DAILY 11/23/21 10/01/22 History Iodine Oral Drops 3 drops PO DAILY 10/01/22 10/01/22 History Magnesium Chloride [Mag64] 192 mg PO DAILY 10/01/22 10/01/22 History Potassium Gluconate 198 mg PO DAILY 10/01/22 10/01/22 History Vitamin D3 Oral Drops(Unknown Dose) 5 drops PO DAILY 10/01/22 10/01/22 History Allergies Allergy/AdvReac Type Severity Reaction Status Date / Time No Known Allergies Allergy Verified 10/01/22 11:58 Surgical - Exam Vital Signs Temp Pulse Resp BP Pulse Ox 97.3 F L 58 L 16 150/91 98 10/01/22 09:11 10/01/22 09:11 10/01/22 09:11 10/01/22 09:11 10/01/22 09:11 - General well developed, well nourished, no distress - Eyes PERRL - ENT normal pinna - Neck no masses - Respiratory normal expansion - Cardiovascular Rhythm: regular - Abdomen Abdomen: soft, non tender Results - Labs 10/01/22 09:23 Abnormal Lab Results - Last 24 Hours (Table) 10/01/22 Range/Units 09:23 Neutrophils # 8.5 H (1.3-7.7) k/uL Lymphocytes # 0.8 L (1.0-4.8) k/uL Assessment and Plan Assessment: GERD. We'll perform EGD
[2022-10-01] MEDS ORDERED: ACETAMINOPHEN TAB 500 MG TAB PO ONE (14:12)
[2022-10-01] MEDS ORDERED: HEPARIN SODIUM,PORCINE 5,000 UNIT/ML 1 ML VIAL SQ ONE (14:12)
[2022-10-01] MEDS ORDERED: fentaNYL (PF) 50 MCG/ML 2 ML AMP ONE (14:19)
[2022-10-01] MEDS ORDERED: GLYCOPYRROLATE 0.2 MG/ML 2 ML VIAL ONE (14:19)
[2022-10-01] MEDS ORDERED: MIDAZOLAM 2 MG/2 ML VIAL ONE (14:19)
[2022-10-01] MEDS ORDERED: HYDROmorphone (PF) 1 MG/ML ONE (14:19)
[2022-10-01] MEDS ORDERED: NEOSTIGMINE 1 MG/ML 10 ML VIAL ONE (14:19)
[2022-10-01] MEDS ORDERED: SUCCINYLCHOLINE CHLORIDE 200 MG/10 ML VIAL IV ONE (14:19)
[2022-10-01] MEDS ORDERED: KETOROLAC 15 MG/ML 1 ML VIAL ONE (14:19)
[2022-10-01] MEDS ORDERED: ROCURONIUM 10 MG/ML (5 ML VIAL) IV ONE (14:19)
[2022-10-01] MEDS ORDERED: PROPOFOL 10 MG/ML 20 ML VIAL IV ONE (14:19)
[2022-10-01] MEDS ORDERED: LIDOCAINE 2% INJ 20 MG/ML (2 ML VIAL) ONE (14:19)
[2022-10-01] MEDS ORDERED: BUPIVACAIN-EPI 0.25%-1:200,000 30 ML VIAL SQ ONE (14:40)
[2022-10-01] MEDS ORDERED: HYDROmorphone 0.5 MG/0.5 ML SYRINGE IVP PRN (15:20)
[2022-10-01] MEDS ORDERED: NALOXONE 0.4 MG/ML 1 ML VIAL IV PRN (15:20)
[2022-10-01] MEDS ORDERED: ACETAMINOPHEN TAB 325 MG TAB PO PRN (15:20)
[2022-10-01] MEDS ORDERED: traMADol 50 MG TAB PO PRN (15:20)
[2022-10-01] MEDS ORDERED: HYDROmorphone 1 MG/ML 1 ML SYRINGE IVP PRN (15:20)
--- NOTE | 2022-10-01 15:20 | P.OP ---
Date of Procedure: 10/01/22 Preoperative Diagnosis: Cholecystitis Cholelithiasis Postoperative Diagnosis: Acute cholecystitis with hydropic gallbladder Procedure(s) Performed: Laparoscopic cholecystectomy Anesthesia: MERARI Surgeon: Ravi Rice Estimated Blood Loss (ml): 25 Pathology: other (Gallbladder) Condition: stable Disposition: PACU Description of Procedure: The patient was placed on the operating table. The patient received a general endotracheal tube anesthesia. The patients abdomen was prepped and draped in the usual sterile fashion. Through an infraumbilical stab incision, the fascia of the anterior abdominal wall was grasped with a pair of Kochers and then the Veress needle was placed in the peritoneal cavity. Position of the Veress needle was confirmed with positive drop test. The abdomen was then insufflated. After adequate insufflation, the 10 mm trocar was placed in the peritoneal cavity. Following this the laparoscope was placed in the peritoneal cavity. The patient was placed in the head-up, right side up position and then a 5 mm trocar was placed in the right lateral and right subcostal position under direct visualization. A 8 mm trocar was placed in the epigastric position. The gallbladder was grasped in the fundus and infundibulum. Traction on the gallbladder was placed in the lateral and the cephalad positions. The triangle of Calot was visualized.. The cystic duct was bluntly dissected until the union of the cystic duct and common bile duct was seen. A critical view of safety was achieved. The cystic duct was then divided and sealed with the Harmonic scissors. A PDS Endoloop was then placed throughout the cystic duct stump. The cystic artery divided and sealed with the Harmonic scissors. The gallbladder was then removed from the liver bed using Harmonic scissors. The gallbladder was then extracted through the epigastric port site. Operative field was checked for any bleeding spots and Harmonic scissors was used to coagulate the liver bed. The abdomen was irrigated. The trocars were removed. The skin was closed using interrupted 3-0 Vicryl suture. Dermabond dressing were applied. The patient tolerated the procedure well.
[2022-10-02] MEDS ORDERED: HYDROcodone/APAP 5-325MG 1 EACH TAB PO PRN (08:02)
[2022-10-02 08:55] VITALS: BP 131/88; PULSE 75; RESP 15; TEMP 98
[2022-10-02] MEDS ORDERED: ENOXAPARIN 40 MG/0.4 ML SYRINGE SQ SCH (09:00)
[2022-10-02] MEDS ORDERED: LEVOTHYROXINE 75 MCG TAB PO SCH (09:45)
--- NOTE | 2022-10-02 10:43 | P.DS ---
Providers Date of admission: 10/01/22 11:40 Expected date of discharge: 10/02/22 Attending physician: Ravi Rice Consults: 10/01/22 15:22 Consult Physician Routine Consulting Provider: Rachna Parks Consult Reason/Comments: Medical management Do you want consulting provider notified?: Yes Primary care physician: [facility] Course: Discharge diagnosis 1. Acute cholecystitis with hydropic gallbladder Hospital course This is a 66-year-old female who was transferred from [facility]. She was found to have evidence of gallstones and right upper quadrant abdominal pain. She is status post laparoscopic cholecystectomy. Patient tolerated surgery well. Her pain is controlled. She is tolerating diet. She has been up and ambulating. She is afebrile. She is having flatus. Denies any difficulty urinating. She is stable for discharge. Please refer to chart for any further details. Physician Help Desk Manager note has been reviewed by physician. Signing provider agrees with the documented findings, assessment, and plan of care. Patient Condition at Discharge: Stable Plan - Discharge Summary New Discharge Prescriptions: New Ibuprofen [Motrin] 600 mg PO Q8HR PRN #30 tab PRN Reason: Pain oxyCODONE HCL [OxyIR] 5 mg PO Q6H PRN 2 Days #8 tab PRN Reason: Pain Acetaminophen Tab [Tylenol Tab] 650 mg PO Q4H PRN #30 tablet PRN Reason: Pain Continue Iodine Oral Drops 3 drops PO DAILY Potassium Gluconate 198 mg PO DAILY Levothyroxine Sodium 150 mcg PO DAILY Magnesium Chloride [Mag64] 192 mg PO DAILY Vitamin D3 Oral Drops(Unknown Dose) 5 drops PO DAILY Discharge Medication List Levothyroxine Sodium 150 mcg PO DAILY 11/23/21 [History] Iodine Oral Drops 3 drops PO DAILY 10/01/22 [History] Magnesium Chloride [Mag64] 192 mg PO DAILY 10/01/22 [History] Potassium Gluconate 198 mg PO DAILY 10/01/22 [History] Vitamin D3 Oral Drops(Unknown Dose) 5 drops PO DAILY 10/01/22 [History] Acetaminophen Tab [Tylenol Tab] 650 mg PO Q4H PRN #30 tablet 10/02/22 [Rx] Ibuprofen [Motrin] 600 mg PO Q8HR PRN #30 tab 10/02/22 [Rx] oxyCODONE HCL [OxyIR] 5 mg PO Q6H PRN 2 Days #8 tab 10/02/22 [Rx] Follow up Appointment(s)/Referral(s): Claudio Haro MD [Primary Care Provider] - 1-2 days Ravi Rice MD [STAFF PHYSICIAN] - 1 Week Activity/Diet/Wound Care/Special Instructions: No driving while taking OxyIR No lifting over 10 pounds Shower daily. No soaking or tub baths for 2 weeks Very light activity until you are reevaluated at your follow up appointment with your surgeon Discharge Disposition: HOME SELF-CARE
[2022-10-02 11:57] LABS: African American GFR (CKD) >90 (>60 ml/min/1.73 sqM); Anion Gap 6 mmol/L; Blood Urea Nitrogen 10 mg/dL (7-17); Calcium 8.2 mg/dL (8.4-10.2); Carbon Dioxide 28 mmol/L (22-30); Chloride 101 mmol/L (98-107); Glucose 114 mg/dL (74-99); Non-African American GFR(CKD) >90 (>60 ml/min/1.73 sqM); Potassium 4.2 mmol/L (3.5-5.1); Sodium 135 mmol/L (137-145)
--- NOTE | 2022-10-02 16:30 | P.CONS ---
History of Present Illness - Reason for Consult Consult date: 10/02/22 Medical management Requesting physician: Ravi Rice - History of Present Illness This is a pleasant 66-year-old year old female with medical history significant for gastroesophageal reflux disease, hyperlipidemia, osteoarthritis, thyroidectomy secondary to a thyroid nodule and goiter. Patient reports having her appendix taken out 2 weeks ago. Patient is evaluated on the medical floor she is postoperative day #1 and laparoscopic cholecystectomy for a acute cholecystitis and hydropic gallbladder. Patient postoperatively reports minimal abdominal pain she is passing gas, patient has been up in the chair and tolerating diet. Patient does report issues with hypokalemia prior to surgery. Her potassium today is 4.2. Patient reports no fever or chills. She is maintained on iodine drops as well as the levothyroxine outpatient which is a resumed. Patient has been evaluated and cleared by general surgery for discharge medically she is clear. She is hemodynamically stable. REVIEW OF SYSTEMS: CONSTITUTIONAL: No fever, no malaise, no fatigue. HEENT: No recent visual problems or hearing problems. Denied any sore throat. CARDIOVASCULAR: No chest pain, orthopnea, PND, no palpitations, no syncope. PULMONARY: No shortness of breath, no cough, no hemoptysis. GASTROINTESTINAL: No diarrhea, no nausea, no vomiting, no abdominal pain. NEUROLOGICAL: No headaches, no weakness, no numbness. HEMATOLOGICAL: Denies any bleeding or petechiae. GENITOURINARY: Denies any burning micturition, frequency, or urgency. MUSCULOSKELETAL/RHEUMATOLOGICAL: Denies any joint pain, swelling, or any muscle pain. ENDOCRINE: Denies any polyuria or polydipsia. The rest of the 14-point review of systems is negative. PHYSICAL EXAMINATION: GENERAL: The patient is alert and oriented x3, not in any acute distress. Well developed, well nourished. HEENT: Pupils are round and equally reacting to light. EOMI. No scleral icterus. No conjunctival pallor. Normocephalic, atraumatic. No pharyngeal erythema. No thyromegaly. CARDIOVASCULAR: S1 and S2 present. No murmurs, rubs, or gallops. PULMONARY: Chest is clear to auscultation, no wheezing or crackles. ABDOMEN: Soft, nontender, nondistended, normoactive bowel sounds. No palpable organomegaly. Post surgical abdomen laproscopic incisions approximated. MUSCULOSKELETAL: No joint swelling or deformity. EXTREMITIES: No cyanosis, clubbing, or pedal edema. NEUROLOGICAL: Gross neurological examination did not reveal any focal deficits. SKIN: No rashes. Assessment and plan Assessment Acute cholecystitis and hydropic gallbladder postoperative day #1 laproscopic cholecystectomy Prior appendectomy laparoscopic 2 weeks ago History of thyroidectomy secondary to a thyroid nodule and later patient is maintaining a level thyroxine and iodine drops which have been resumed History of GERD History hyperlipidemia History of osteoporosis Obesity with BMI of 41.6 GI prophylaxis DVT prophylaxis as per primary Plan Patient is evaluated today and doing well postoperatively. Medically she is stable for discharge when cleared by primary services. Thank you kindly for this consultation. Recommend patient to increase activity as tolerated and continue with incentive spirometer on discharge. The impression and plan of care has been dictated by Christy Mota Nurse Practitioner as directed. Dr. Richy MD I have performed a history and physical examination and medical decision making of this patient, discussed the same with the dictator, and agree with the dictators assessment and plan as written, documented as a scribe. Based on total visit time, I have performed more than 50% of this visit. Past Medical History Past Medical History: GERD/Reflux, Hyperlipidemia, Osteoarthritis (OA), Thyroid Disorder Additional Past Medical History / Comment(s): hx gout, thyroidectomy for nodules., bunion right foot History of Any Multi-Drug Resistant Organisms: None Reported Past Surgical History: Tubal Ligation Additional Past Surgical History / Comment(s): thyroidectomy, D&C x2, bunion left foot Past Anesthesia/Blood Transfusion Reactions: No Reported Reaction Past Psychological History: No Psychological Hx Reported Smoking Status: Never smoker Past Alcohol Use History: Rare Past Drug Use History: None Reported - Past Family History Mother Family Medical History: Hypertension Father Family Medical History: Myocardial Infarction ([place]) Brother(s) Family Medical History: Deep Vein Thrombosis (DVT) Medications and Allergies Home Medications Medication Instructions Recorded Confirmed Type Levothyroxine Sodium 150 mcg PO DAILY 11/23/21 10/01/22 History Iodine Oral Drops 3 drops PO DAILY 10/01/22 10/01/22 History Magnesium Chloride [Mag64] 192 mg PO DAILY 10/01/22 10/01/22 History Potassium Gluconate 198 mg PO DAILY 10/01/22 10/01/22 History Vitamin D3 Oral Drops(Unknown Dose) 5 drops PO DAILY 10/01/22 10/01/22 History Acetaminophen Tab [Tylenol Tab] 650 mg PO Q4H PRN #30 tablet 10/02/22 Rx Ibuprofen [Motrin] 600 mg PO Q8HR PRN #30 tab 10/02/22 Rx oxyCODONE HCL [OxyIR] 5 mg PO Q6H PRN 2 Days #8 tab 10/02/22 Rx Allergies Allergy/AdvReac Type Severity Reaction Status Date / Time No Known Allergies Allergy Verified 10/01/22 11:58 Physical Exam Vitals: Vital Signs Temp Pulse Pulse Pulse Resp BP BP 10/02/22 07:00 98 F 75 15 131/88 10/02/22 02:13 98.7 F 67 17 10/01/22 20:30 66 10/01/22 19:30 68 10/01/22 18:30 64 10/01/22 18:00 65 10/01/22 17:30 64 10/01/22 17:15 64 10/01/22 17:00 66 10/01/22 16:45 69 10/01/22 16:30 97.8 F 68 16 10/01/22 16:01 80 16 10/01/22 15:46 86 16 10/01/22 15:31 97 F L 97 16 10/01/22 13:40 97.6 F 77 18 10/01/22 13:00 97.7 F 72 16 10/01/22 12:47 78 18 108/49 10/01/22 11:40 58 L 18 143/86 BP BP Pulse Ox 10/02/22 07:00 96 10/02/22 02:13 126/68 96 10/01/22 20:30 122/68 96 10/01/22 19:30 132/79 95 10/01/22 18:30 129/81 96 10/01/22 18:00 125/83 93 L 10/01/22 17:30 131/82 95 10/01/22 17:15 127/81 92 L 10/01/22 17:00 141/84 94 L 10/01/22 16:45 127/83 94 L 10/01/22 16:30 133/78 94 L 10/01/22 16:01 139/64 98 10/01/22 15:46 122/61 98 10/01/22 15:31 139/62 96 10/01/22 13:40 139/73 97 10/01/22 13:00 152/90 98 10/01/22 12:47 98 10/01/22 11:40 97 Intake and Output 10/01/22 10/02/22 10/02/22 22:59 06:59 14:59 Intake Total 143 Output Total 5 Balance 138 Intake: IV 25 Oral 118 Output: Estimated Blood Loss 5 Other: # Voids 1 1 Weight 113.398 kg Results CBC & Chem 7: 10/01/22 09:23 10/02/22 10:35 Assessment and Plan Time with Patient: Less than 30
[2022-10-03] MEDS ORDERED: IODINE PO SCH (09:00)
== END 2022-10-02 13:11 | disposition home or self-care (01) ==
LOC: EC 09:07 → 6NMEDSUR 11:40
PROVIDERS: ADMIT Surgery; ATTEND Surgery
DX: K80.13 Calculus of gallbladder with acute and chronic cholecystitis with obstruction (principal); K82.1 Hydrops of gallbladder; K21.9 Gastro-esophageal reflux disease without esophagitis; E78.5 Hyperlipidemia, unspecified; M19.90 Unspecified osteoarthritis, unspecified site; E89.0 Postprocedural hypothyroidism; M10.9 Gout, unspecified; M21.611 Bunion of right foot; R00.1 Bradycardia, unspecified; M81.0 Age-related osteoporosis without current pathological fracture; E66.9 Obesity, unspecified; Z68.41 Body mass index [BMI] 40.0-44.9, adult; Z79.890 Hormone replacement therapy; Z79.899 Other long term (current) drug therapy; Z98.51 Tubal ligation status; Z90.49 Acquired absence of other specified parts of digestive tract; Z98.890 Other specified postprocedural states; Z82.49 Family history of ischemic heart disease and other diseases of the circulatory system
CPT/HCPCS: 96374; 99285; 36415; 93005; 88304; 80048; 84484; 85025; 76705; 47562; G0378 ×2; J2250; J0330; J1644; J1100; J2710; J2405; J1650; J3010; J1170; J1885; J2704; J2001

== ENCOUNTER 2023-04-29 07:00 | Day surgery (SDC) | payer MEDICARE ==
--- NOTE | 2023-04-29 05:18 | P.GSHP ---
History of Present Illness H&P Date: 04/29/23 CHIEF COMPLAINT: Colon screen HISTORY OF PRESENT ILLNESS: The patient is a 67-year-old female who presents for colon screen. Lower endoscopy was offered for further evaluation and management. PAST MEDICAL HISTORY: Please see list. PAST SURGICAL HISTORY: Please see list. MEDICATIONS: Please see list. ALLERGIES: Please see list. SOCIAL HISTORY: No illicit drug use FAMILY HISTORY: No reports of Crohn disease or ulcerative colitis. REVIEW OF ORGAN SYSTEMS: CONSTITUTIONAL: No reports of fevers or chills. PHYSICAL EXAM: VITAL SIGNS: Stable GENERAL: Well-developed pleasant in no acute distress. HEENT: No scleral icterus. Extraocular movements grossly intact. Moist buccal mucosa. NECK: Supple without lymphadenopathy. CHEST: Unlabored respirations. Equal bilateral excursions. CARDIOVASCULAR: Regular rate and rhythm. Distal 2+ pulses. ABDOMEN: Soft, nontender, nondistended. MUSCULOSKELETAL: No clubbing, cyanosis, or edema. ASSESSMENT: 1. Colon screen. PLAN: 1. Recommend proceeding with a lower endoscopy Past Medical History Past Medical History: Osteoarthritis (OA), Thyroid Disorder Additional Past Medical History / Comment(s): hx gout, thyroidectomy for nodules., bunion terri foot History of Any Multi-Drug Resistant Organisms: None Reported Past Surgical History: Appendectomy, Cholecystectomy, Tubal Ligation Additional Past Surgical History / Comment(s): thyroidectomy, D&C x2, bunion terri foot , Past Anesthesia/Blood Transfusion Reactions: No Reported Reaction Smoking Status: Never smoker - Past Family History Mother Family Medical History: Hypertension Father Family Medical History: Myocardial Infarction ([place]) Brother(s) Family Medical History: Deep Vein Thrombosis (DVT) Medications and Allergies Home Medications Medication Instructions Recorded Confirmed Type Levothyroxine Sodium 150 mcg PO DAILY 11/23/21 04/25/23 History Iodine Oral Drops 3 drops PO DAILY 10/01/22 04/25/23 History Magnesium Chloride [Mag64] 192 mg PO DAILY 10/01/22 04/25/23 History Potassium Gluconate 198 mg PO DAILY 10/01/22 04/25/23 History Vitamin D3 Oral Drops(Unknown Dose) 5 drops PO DAILY 10/01/22 04/25/23 History Allergies Allergy/AdvReac Type Severity Reaction Status Date / Time No Known Allergies Allergy Verified 04/25/23 08:19
[2023-04-29] MEDS ORDERED: LACTATED RINGERS 1,000 ML IV ONE (07:39)
[2023-04-29] MEDS ORDERED: PROPOFOL 10 MG/ML 20 ML VIAL IV ONE (07:52)
[2023-04-29 07:53] VITALS: RESP 16; TEMP 97.2
[2023-04-29] MEDS ORDERED: LACTATED RINGERS 1,000 ML IV SCH (08:12)
[2023-04-29] MEDS ORDERED: LIDOCAINE 1% (10MG/ML) FOR IV START INTRADERMA PRN (08:12)
--- NOTE | 2023-04-29 08:25 | P.PCN ---
Date of Procedure: 04/29/23 Description of Procedure: PREOPERATIVE DIAGNOSIS: Colonoscopy screening POSTOPERATIVE DIAGNOSIS: Tubular adenoma ascending colon Tubular adenoma descending colon Tubular adenoma cecum Tubular adenoma rectum Tubular adenoma sigmoid colon Sigmoid diverticulosis OPERATION: Colonoscopy to the ileocecal valve and appendiceal orifice, cecum Colonoscopy with hot snare polypectomy SURGEON: Humera Mccloud MD. ANESTHESIA: MAC. INDICATIONS: The patient is an 67-year-old female who presents for colonoscopy screening. Benefits and risks were described and informed consent was obtained. DESCRIPTION OF PROCEDURE: The patient had undergone Suprep. The patient had been brought into the operating room and laid in the left lateral decubitus position. After adequate intravenous sedation, the rectum was examined with 2% lidocaine jelly. No external hemorrhoids were encountered. The rectal tone was within normal limits. No lesions were palpated in the rectal vault. An Olympus colonoscope was advanced until the cecum, ileocecal valve and appendiceal orifice were clearly viewed. The prep was good. Sigmoid diverticulosis was encountered. Colonic polyps were found and removed. No evidence of focal colitis was found. Retroflexion of the scope demonstrated grade 1 internal hemorrhoids without active bleeding or inflammation. The colon was desufflated. The patient had tolerated the procedure well. Withdrawal time was over 6 minutes. FINDINGS: Aronchick preparation quality scale 1+ (1-5) Internal hemorrhoids, grade 1 No external hemorrhoids No arteriovenous malformations. Sigmoid diverticulosis Removal of 6 polyps: - Snare polypectomy 20 cm from the anal verge, 8 mm tubulovillous adenoma, sigmoid, removed in piecemeal - Snare polypectomy descending colon 2, 5 to 8 mm villous adenoma - Snare polypectomy at rectum, 12 mm tubular adenoma - Snare polypectomy cecum, 4 mm flat villous adenoma - Snare polypectomy ascending colon, 6 mm flat villous adenoma No focal colitis. RECOMMENDATIONS: Given severity of tubular adenomas, recommend repeat colonoscopy 1 year in 2023 removed in piecemeal Plan - Discharge Summary Discharge Rx Participant: No New Discharge Prescriptions: Continue Iodine Oral Drops 3 drops PO DAILY Potassium Gluconate 198 mg PO DAILY Levothyroxine Sodium 150 mcg PO DAILY Magnesium Chloride [Mag64] 192 mg PO DAILY Vitamin D3 Oral Drops(Unknown Dose) 5 drops PO DAILY Discharge Medication List Levothyroxine Sodium 150 mcg PO DAILY 11/23/21 [History] Iodine Oral Drops 3 drops PO DAILY 04/24/23 [History] Magnesium Chloride [Mag64] 192 mg PO DAILY 10/01/22 [History] Potassium Gluconate 198 mg PO DAILY 10/01/22 [History] Vitamin D3 Oral Drops(Unknown Dose) 5 drops PO DAILY 10/01/22 [History] Follow up Appointment(s)/Referral(s): Humera Mccloud MD [STAFF PHYSICIAN] - As Needed Patient Instructions/Handouts: Colorectal Polyps (GEN), Diverticulosis Diet (GEN), Diverticulosis (DC) Activity/Diet/Wound Care/Special Instructions: Repeat colonoscopy one year, 2023 Discharge Disposition: HOME SELF-CARE
[2023-04-29 08:58] VITALS: BP 116/80; PULSE 74
== END 2023-04-29 08:51 | disposition home or self-care (01) ==
LOC: ORWHC2ENDO 07:00
PROVIDERS: ATTEND Surgery Plastic and Reconstructive Surgery
DX: Z12.11 Encounter for screening for malignant neoplasm of colon (principal); D12.8 Benign neoplasm of rectum; D12.0 Benign neoplasm of cecum; D12.4 Benign neoplasm of descending colon; K57.30 Diverticulosis of large intestine without perforation or abscess without bleeding; K64.0 First degree hemorrhoids
CPT/HCPCS: 88305; 45385; J2704

== ENCOUNTER → 2023-05-06 | Outpatient (CLI) | payer MEDICARE ==
[2023-05-06 20:59] LABS: Basophils # (A) 0.09 X 10*3/uL (0.00-0.10); Basophils % (A) 1.1 %; Eosinophils # (A) 0.19 X 10*3/uL (0.04-0.35); Eosinophils % (A) 2.4 %; HCT 49.4 % (37.2-46.3); HGB 15.8 g/dL (12.0-15.0); Lymphocytes # (A) 2.17 X 10*3/uL (0.90-5.00); Lymphocytes % (A) 27.5 %; MCH 28.2 pg (27.0-32.0); MCV 88.2 FL (80.0-97.0); Mean Platelet Volume 10.8 FL (9.5-12.2); Monocytes # (A) 0.66 X 10*3/uL (0.20-1.00); Monocytes % (A) 8.4 %; NRBC Per 100 WBC 0 X 10*3/uL (0.00-0.01); Neutrophils # (A) 4.75 X 10*3/uL (1.80-7.70); Neutrophils % (A) 60.3 %; Platelet Count 245 X 10*3/uL (140-440); RDW 15.2 % (11.5-14.5); WBC 7.88 X 10*3/uL (4.50-10.00)
== END | disposition home or self-care (01) ==
LOC: LABPAT 14:55
PROVIDERS: ATTEND Obstetrics & Gynecology
DX: Z01.812 Encounter for preprocedural laboratory examination (principal); N84.0 Polyp of corpus uteri
CPT/HCPCS: 85025; 93005

== ENCOUNTER → 2023-05-10 | Day surgery (SDC) | payer MEDICARE ==
--- NOTE | 2023-04-30 17:23 | P.HPIHPCON ---
History of Present Illness H&P Date: 04/30/23 Chief Complaint: Endometrial Polyps Ms. Crews is a 67 year old who presents for surgical management of endometrial polyps found on ultrasound and confirmed with endometrial biopsy. Consent for Procedure: I have explained the operation/procedure to the patient, including the risks, benefits, side effects, alternative therapies (including not receiving the proposed treatment or service), the likelihood of the patient achieving his/her goals, and potential recuperation problems for the procedure/sedation/analgesia, as well as any blood products, if indicated. I also explained to the patient the risks, benefits and side effects of the alternatives, as well as the risks related to not receiving the proposed procedure, care, treatment, or services. Past Medical History Past Medical History: Osteoarthritis (OA), Thyroid Disorder Additional Past Medical History / Comment(s): hx gout, thyroidectomy for nodules., bunion terri foot History of Any Multi-Drug Resistant Organisms: None Reported Past Surgical History: Appendectomy, Cholecystectomy, Tubal Ligation Additional Past Surgical History / Comment(s): thyroidectomy, D&C x2, bunion terri foot , Past Anesthesia/Blood Transfusion Reactions: No Reported Reaction Smoking Status: Never smoker - Past Family History Mother Family Medical History: Hypertension Father Family Medical History: Myocardial Infarction ([place]) Brother(s) Family Medical History: Deep Vein Thrombosis (DVT) Medications and Allergies Home Medications Medication Instructions Recorded Confirmed Type Levothyroxine Sodium 150 mcg PO DAILY 11/23/21 04/29/23 History Iodine Oral Drops 3 drops PO DAILY 10/01/22 04/29/23 History Magnesium Chloride [Mag64] 192 mg PO DAILY 10/01/22 04/29/23 History Potassium Gluconate 198 mg PO DAILY 10/01/22 04/29/23 History Vitamin D3 Oral Drops(Unknown Dose) 5 drops PO DAILY 10/01/22 04/29/23 History Allergies Allergy/AdvReac Type Severity Reaction Status Date / Time No Known Allergies Allergy Verified 04/29/23 07:40 Surgical - Exam Focused physical exam is performed. The patient is in no distress. Breathing is non-labored. Abdomen is soft, non-tender. Extremities are non-tender and non- edematous. Assessment and Plan Assessment: 67 year old with Endometrial Polyps presenting for Hysteroscopy D&C with Polypectomy Plan: Risks, benefits, and alternatives to Hysteroscopy D&C with Polypectomy discussed with the patient including risk of bleeding, infection, uterine perforation, and damage to surrounding structures. The patient understands these risks and desires to proceed with surgery as scheduled. Time with Patient: Less than 30
[~2023-05-10] MED LIST changes: +LACTATED RINGERS 1,000 ML IV ONE; +LIDOCAINE 1% (10MG/ML) FOR IV START INTRADERMA PRN; +LIDOCAINE 1% INJ 10MG/ML (20 ML MDV) ONE; +MIDAZOLAM 2 MG/2 ML VIAL ONE; +PROPOFOL 10 MG/ML 20 ML VIAL IV ONE; +Pre Op ABX Message 1 EACH MISC MISCELLANE ONE; -SCOPOLAMINE 1 MG/72 HR PATCH TRANSDERM ONE; +fentaNYL (PF) 50 MCG/ML 2 ML AMP ONE
[2023-05-10 07:09] VITALS: TEMP 97
--- NOTE | 2023-05-10 08:13 | P.OP ---
Date of Procedure: 05/10/23 Preoperative Diagnosis: 1. Postmenopausal Bleeding 2. Endometrial Polyps Postoperative Diagnosis: Same Procedure(s) Performed: Hysteroscopy Dilation and Curretage with Polypectomy Implants: None Anesthesia: ANASTASIAA Surgeon: Angi Rosario Estimated Blood Loss (ml): 10 IV fluids (ml): 800 Urine output (ml): 20 Pathology: other (endometrial curettings) Condition: stable Disposition: same day Indications for Procedure: Ms. Crews is a 67 year old female with post-menopausal bleeding. Ultrasound and endometrial biopsy confirmed endometrial polyps. Risks, benefits, and alternatives to Hysteroscopy D&C with Polypectomy were discussed with the patient including risk of bleeding, infection, uterine perforation, and damage to surrounding structures. The patient understands these risks and desires to proceed with the surgery as discussed. All questions answered. Operative Findings: Uterus sounds to 10 centimeters. Bilateral ostia visualized to be normal. Two discrete polypoid masses were appreciated in the endometrial cavity. Description of Procedure: Patient is brought to the operating suite and placed in the dorsal lithotomy position. The cervix perineum and lower abdomen are prepped and draped in the usual sterile fashion. Examination under anesthesia reveals a anteverted uterus. Adnexa are negative bilaterally. The bladder is drained for approximately 20 mL of clear yellow urine. The anterior lip of the cervix is grasped with a double toothed tenaculum after the weighted speculum is placed into the vagina. The uterus sounds to a depth of 10 cm in the anteverted position. The Hanks dilators are placed and the cervix was dilated to 18 mm. The hysteroscope was then introduced and with saline infusion the cavity is dist ended. Two endometrial polyps are noted in a background of atrophic endometrium. The MyoSure device is inserted through the hysteroscope and the polyps are shaved away along with a global sampling of the endometrial cavity. The cavity is noted to be completely evacuated. The hysteroscopy is removed and fluid deficit is noted to be 235 mL. All sponge needle and instrument counts are correct. Instrumentation is removed from the vagina and the patient is brought to the recovery room in stable condition. Toradol is given prior to leaving the operative suite. Patient will follow up with me in the office in 2 weeks. Verbal and written instructions are provided.
[2023-05-10 09:27] VITALS: RESP 18
[2023-05-10 09:54] VITALS: BP 134/88; PULSE 56
== END | disposition home or self-care (01) ==
LOC: OR 06:03
PROVIDERS: ATTEND Obstetrics & Gynecology
DX: N84.0 Polyp of corpus uteri (principal); N95.0 Postmenopausal bleeding; M19.90 Unspecified osteoarthritis, unspecified site; E07.9 Disorder of thyroid, unspecified; Z98.890 Other specified postprocedural states; Z90.89 Acquired absence of other organs; Z90.49 Acquired absence of other specified parts of digestive tract; Z98.51 Tubal ligation status; Z82.49 Family history of ischemic heart disease and other diseases of the circulatory system; Z79.899 Other long term (current) drug therapy
CPT/HCPCS: 88305; 58558; J2250; J1100; J2405; J2001; J3010; J2704